=== PATIENT | female | born 1955 | race Hispanic/Latino ===

== ENCOUNTER → 2022-03-25 | Outpatient (CLI) | payer BC, MEDICARE ==
[~2022-03-25] MED LIST: CETI10CA5 PO; CYAN1TAB44 PO; IOHEXOL 350 MG/ML 100ML INFUS..BTL IV ONE; IRON PO; METOPROLOL TARTRATE 1 MG/ML 5ML VIAL IV ONE; NASOCORT PUFF; SYMBICORT PUFF; VITAMIN D PO
== END | disposition home or self-care (01) ==
LOC: CANSCHCLI → RAH 07:52 → EEVIPCON 08:00
PROVIDERS: ATTEND Internal Medicine Nephrology
DX: I25.10 Atherosclerotic heart disease of native coronary artery without angina pectoris (principal); M47.815 Spondylosis without myelopathy or radiculopathy, thoracolumbar region
CPT/HCPCS: 75574; J3490; Q9967